=== PATIENT | female | born 1995 | race Caucasian/White ===

== ENCOUNTER 2017-02-28 17:34 | Inpatient (IN) | payer OTHER ==
[2017-02-28 18:20] LABS: Urine Appearance Cloudy; Urine Bilirubin Negative (NEGATIVE); Urine Color Yellow
[2017-02-28 18:31] LABS: Urine Blood Negative /ul (NEGATIVE); Urine Ketone Large mg/dL (NEGATIVE); Urine Nitrite Positive (NEGATIVE); Urine Protein 30 mg/dL (NEGATIVE); Urine Specific Gravity 1.025 SP.GR. (1.005-1.010); Urine Urobilinogen Normal (NORMAL); Urine WBC >50 /hpf (0-5)
[2017-02-28 18:32] LABS: Urine Bacteria 4+; Urine RBC None Seen /hpf (0-5)
--- OUTSIDE RECORDS SUMMARY | 2017-02-28 18:35 | XMS REPORT | Continuity of Care Document ---
:1995 Author Organization [employer] [place] [address] Care Team Providers Name Role Phone Roger Lai Primary Care Provider [phone] Source Comments This disclosure is being made pursuant to the [employer] program and maynot contain all information available regarding this patient.[facility] Active Allergies and Adverse Reactions No Known Allergies Current Medications Be aware that medications may not be up to date as of this document. Alwaysverify current medications with the patient. Prescription Sig. Disp. Refills Start Date End Date Status docusate sodium 100 MG Take 100 mg by 30 capsule 0 12/18/2012 Active CAPS mouth 2 (two) times daily. ibuprofen Take 1 tablet by 30 tablet 0 12/18/2012 Active (ADVIL,MOTRIN) 400 MG mouth every 4 tablet (four) hours as needed. norgestimate-ethinyl Take 1 tablet by 28 tablet 2 12/18/2012 Active estradiol mouth daily. 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 Pulse 80 12/18/2012 7:40 AM NAIL [employer] BR[employer] MACHINE FEEDER Temperature 36.1 C (97 F) 12/18/2012 7:40 AM NAIL [employer]ISH BR[employer] MACHINE FEEDER Respiratory Rate 18 12/18/2012 7:40 AM NAIL POLISH BR[employer] MACHINE FEEDER Height 1.626 m (5' 4") 12/16/2012 2:30 AM NAIL POLISH BR[employer] MACHINE FEEDER Weight 66.225 kg (146 lb) 12/16/2012 2:30 AM NAIL POLISH BR[employer] MACHINE FEEDER Body Mass Index 25.05 12/16/2012 2:30 AM NAIL POLISH BRUSH MACHINE FEEDER Oxygen Saturation 97% 12/12/2012 7:09 PM NAIL POLISH BRUSH MACHINE FEEDER Plan of Care Health Maintenance Due Date Last Done Comments HPV Vaccine (9-26YO) (1 of 3 - Female/Unknown 3 Dose 2004 Series) Chlamydia Screening 2009 Tetanus/Pertussis (1 - Tdap) 2012 Pap Smear 2014 Retired-INFLUENZA VACCINE 06/26/2016 Results from Last 3 Months Not on file
[2017-02-28] MEDS ORDERED: ACETAMINOPHEN 500 MG TABLET PO ONE (18:46)
[2017-02-28 18:53] LABS: Hematocrit 30.8 % (37.0-47.0); Hemoglobin 10.5 gm/dL (12.5-16.0); Mean Cell Volume 87.5 fl (78-100); Mean Corpuscular Hemoglobin 29.8 pg (27-31); Mean Corpuscular Hgb Conc 34.1 g/dl (32-36); Mean Platelet Volume 9.2 fl (6.0-9.5); Neutrophil # 13.7 K/mm3 (1.3-6.0); Neutrophil % 81.5 % (42-75.0); Platelet Count 289 K/mm3 (150-450); Red Blood Count 3.52 M/mm3 (4.2-5.4); Red Cell Distribution Width 12.6 % (11.5-14.0); White Blood Count 16.8 K/mm3 (4.0-10.5)
[2017-02-28 18:56] LABS: Total Cells Counted 100
[2017-02-28 19:00] LABS: Anion Gap 13.9 mmol/L (6.8-13.8); BUN/Creatinine Ratio 6.9 (9.0-21.6); Blood Urea Nitrogen 4 mg/dL (3-23); Calcium * 8.6 mg/dL (7.9-10.9); Carbon Dioxide 23.6 mmol/L (24-32.6); Chloride 104 mmol/L (97-106); Glucose * 97 mg/dL (70-110); Potassium 3.5 mmol/L (3.4-4.6); Sodium 138 mmol/L (132-142)
--- NOTE | 2017-02-28 19:16 | ERNOTE ---
Medical Problem HPI - Narrative Date of Service: 02/28/17 - General Chief Complaint: General Assessment Time Seen by Provider: 02/28/17 17:55 Source: patient Exam Limitations: no limitations - Immun/Allergies/Home Medications Immunizations: IMMUNIZATION HX Immunizations Up to Date Yes History of Influenza Vaccine No Hx Pneumococcal Vaccination No - History of Present History Narrative: patient presents to the ED for left posterior back pain. She relates this started last night around 9pm. She localizes it to near her spine. It hurts to lay on the area and move from side to side, also minimally to breath. No SOB. She has felt feverish. Some "[place]" contractions but no active contractions. No vaginal bleeding or lfluid leakage. No CP. She thinks she may have a UTI as her urine is dark. Has not seen anyone else for this. She works at [employer] and [employer] but cannot recall a specific injury. Timing: constant Severity: moderate Modifying Factors - (Improves): Present: rest Modifying Factors - (Worsens): Present: movement, other - twisting, palpation. Review of Systems - Review of Systems Constitutional: Present: fever Respiratory: Absent: cough Cardiology: Absent: chest pain Gastrointestinal/Abdominal: Absent: vomiting Genitourinary: Present: See HPI Musculoskeletal: Present: back pain Skin: Absent: rash All Other Systems: All systems neg except as marked - Patient's Past Medical History Patient History - Medical: Anemia Patient History - Cardiac/Respiratory: No pertinent hx Patient History - Cancer: No Hx of Cancer Patient History - Surgical Procedures: No surgical history Patient History - Other: None LMP (females 10-50): - Social History Living Situations: home Abuse History: No History of abuse Psych History: No pertinent hx Smoking Status: Current some day smoker Have you smoked in the past 12 months: Yes Alcohol Use: none Drug Use: none - Immunizations Immunizations Up to Date: Yes Hx Pneumococcal Vaccination: No History of Influenza Vaccine: No Physical Exam - Physical Exam General Appearance: Present: alert, no apparent distress Eye Exam: Normal inspection: bilateral, PERRL: bilateral Ears, Nose, Throat: Present: normal ENT inspection Neck: Present: normal inspection Respiratory: Present: no respiratory distress, normal breath sounds, no accessory muscle use, lungs clear Cardiovascular/Chest: Present: regular rate, rhythm Gastrointestinal/Abdominal: Present: normal bowel sounds, nontender, soft, other - gravid Back Exam: Present: other - No clear CVA tenderness. Dher does have muscular tenderness left thoracic back that is quite tender and palpation of the muscluature here reproduces her pain. Extremity Exam: Present: normal inspection, other - no DVT findings Neurological Exam: Present: alert, normal mood/affect, no motor/sensory deficits Skin Exam: Absent: skin rash ED Progress - Results and Orders Patient's Lab Results:: I have reviewed the patient's lab results. - Vital Signs Patient's Vital Signs:: I have reviewed the patient's vital signs. Vital Signs: Vital Signs 02/28/17 02/28/17 02/28/17 17:44 18:08 18:40 Temperature 37.6 C H 37.8 C H Pulse Rate 116 H 102 H Respiratory 16 Rate Blood Pressure 99/57 O2 Sat by Pulse 100 Oximetry 02/28/17 18:49 Temperature 37.7 C H Pulse Rate 100 Respiratory 14 Rate Blood Pressure 90/50 O2 Sat by Pulse 97 Oximetry - Progress/Reassessment Chief Complaint: General Assessment Progress Note-Subjective: 02/28/17 19:13 I discussed the case with Dr Chappell who wishes to have the patient sent to OB for further eval and mgmt, IV and ABx abx will be started there. Nothing at this time to suggest active labor or pulmonary embolism. immediate transfer to OB. Departure - Departure Clinical Impression: Back pain, UTI (urinary tract infection), , Leukocytosis Disposition: [facility] Condition: Stable Referrals: Isamar Beasley MD [Primary Care Provider] -
[2017-02-28 19:35] LABS: Band 1 % (0-2.0); Lymphocyte 17 % (20-51); Monocyte 12 % (0-9); Neutrophil 70 % (42-75); Neutrophil # 11.8 K/mm3 (1.3-6.0)
[2017-02-28 19:39] LABS: Platelet Estimate Normal (NORMAL); RBC Morphology Normal (NORMAL)
--- OUTSIDE RECORDS SUMMARY | 2017-02-28 19:51 | XMS REPORT | Continuity of Care Document ---
:1995 Author Organization [employer] [place] [address] Care Team Providers Name Role Phone Roger Lai Primary Care Provider [phone] Source Comments This disclosure is being made pursuant to the [employer] program and maynot contain all information available regarding this patient.[employer] Active Allergies and Adverse Reactions No Known [...] Taken Blood Pressure 106/60 12/18/2012 7:40 AM HEAD SCREEN WORKER Pulse 80 12/18/2012 7:40 AM HEAD SCREEN WORKER Temperature 36.1 C (97 F) 12/18/2012 7:40 AM HEAD SCREEN WORKER Respiratory Rate 18 12/18/2012 7:40 AM HEAD SCREEN WORKER Height 1.626 m (5' 4") 12/16/2012 2:30 AM HEAD SCREEN WORKER Weight 66.225 kg (146 lb) 12/16/2012 2:30 AM HEAD SCREEN WORKER Body Mass Index 25.05 12/16/2012 2:30 AM HEAD SCREEN WORKER Oxygen Saturation 97% 12/12/2012 7:09 PM HEAD SCREEN WORKER Plan of Care Health Maintenance Due Date Last Done Comments HPV Vaccine (9-26YO) (1 of 3 - Female/Unknown 3 Dose 2004 Series) Chlamydia Screening 2009 Tetanus/Pertussis (1 - Tdap) 2012 Pap Smear 2014 Retired-INFLUENZA VACCINE 06/26/2016 Results from Last 3 Months Not on file
[2017-02-28] MEDS ORDERED: ceFAZolin SODIUM 1 GM in DEXTROSE 5 % IN WATER 100 ML IV SCH ×2 (20:00)
[2017-02-28] MEDS ORDERED: ceFAZolin SODIUM/DEXTROSE,ISO 2 GM/50 ML BAG IV SCH (20:00)
[2017-02-28] MEDS ORDERED: ACETAMINOPHEN 325 MG TABLET PO PRN (20:01)
[2017-02-28] MEDS: RINGERS SOLUTION,LACTATED 1,000 ML IV PRN (20:05)
--- NOTE | 2017-02-28 20:24 | HP ---
Chief Complaint - Chief Complaint Date of Service: 02/28/17 Time of Service: 20:10 Chief Complaint: left sided back pain and fever/chills History of Present Illness: patient reports onset last pm around 9:00. worse with certain movement and deep breath. some associated urinary frequency. no dysuria - Patient's Past Medical History Patient History - Medical: No pertinent hx, Anemia Patient History - Cardiac/Respiratory: No pertinent hx Patient History - Cancer: No Hx of Cancer Patient History - Surgical Procedures: No surgical history Patient History - Other: None LMP (females 10-50): LMP (Calendar): 07/21/16 - Social History Living Situations: significant other Abuse History: No History of abuse Psych History: No pertinent hx Does anyone smoke in the home?: Yes Smoking Status: Current some day smoker - 1-2 cigarettes daily Have you smoked in the past 12 months: Yes Alcohol Use: none Drug Use: none - Immunizations Immunizations Up to Date: Yes Hx Pneumococcal Vaccination: No History of Influenza Vaccine: Yes Review Of Systems (GEN) - Review of Systems Generalized/Overall Review: Present: Chills, Fever EENTM: Present: No Symptoms Reported Respiratory: Present: No Symptoms Reported Cardiac: Present: No Symptoms Reported Abdominal: Absent: Nausea, Vomiting Genitourinary: Present: Frequency Musculoskeletal: Present: Back Pain Neurological: Present: No Symptoms Reported Skin: Present: No Symptoms Reported Additional Comments: Denies contractions, vaginal bleeding, leaking fluid or decreased movement. Allergies/Adverse Reactions: Allergies Allergy/AdvReac Type Severity Reaction Status Date / Time No Known Allergies Allergy Verified 02/28/17 20:07 Home Medications: HOME MEDICATIONS Acetaminophen [Tylenol] 325 mg PO PRN PRN 02/28/17 [Last Taken 02/28/17] Vit#96/Ferrous Fum/FA [ S] 1 tab PO DAILY 02/28/17 [Last Taken 02/28/17 0900] Exam - Exam Vital Signs: Vital Signs - Last Taken Temp 37.9 C H 02/28/17 20:08 Pulse 107 H 02/28/17 20:08 Resp 16 02/28/17 20:08 BP 117/69 02/28/17 20:08 Pulse Ox 98 02/28/17 20:08 Constitutional: Present: Alert, Oriented x3, Cooperative ENT Exam: Present: other - poor dentition Neck: Present: non-tender Back Exam: Present: CVA tenderness (L) Respiratory: Present: lungs clear, normal breath sounds Cardiovascular/Chest: Present: regular rate, rhythm Abdomen: Present: soft, nontender /Rectal: Present: Other - cervix FTP/25%/-3 vertex Extremity: Present: normal inspection, no pedal edema Skin Exam: Present: normal color, warm/dry Appearance: Present: appropriate appearance Eye contact: Present: cooperative Diagnostic Studies: Laboratory Results WBC 16.8 K/mm3 (4.0-10.5) H 02/28/17 18:45 RBC 3.52 M/mm3 (4.2-5.4) L 02/28/17 18:45 Hgb 10.5 gm/dL (12.5-16.0) L 02/28/17 18:45 Hct 30.8 % (37.0-47.0) L 02/28/17 18:45 MCV 87.5 fl (78-100) 02/28/17 18:45 MCH 29.8 pg (27-31) 02/28/17 18:45 MCHC 34.1 g/dl (32-36) 02/28/17 18:45 RDW 12.6 % (11.5-14.0) 02/28/17 18:45 Plt Count 289 K/mm3 (150-450) 02/28/17 18:45 MPV 9.2 fl (6.0-9.5) 02/28/17 18:45 Immature Gran % (Auto) 0.50 % (0.001-0.429) H 02/28/17 18:45 Immature Gran # (Auto) 0.09 K/mm3 (0.000-0.0310) H 02/28/17 18:45 Neutrophils % 81.5 % (42-75.0) H 02/28/17 18:45 Neutrophils % (Manual) 70 % (42-75) 02/28/17 18:45 Band Neuts % (Manual) 1 % (0-2.0) 02/28/17 18:45 Lymphocytes % 7.7 % (20-51) L 02/28/17 18:45 Lymphocytes % (Manual) 17 % (20-51) L 02/28/17 18:45 Monocytes % 10.0 % (0.0-9) H 02/28/17 18:45 Monocytes % (Manual) 12 % (0-9) H 02/28/17 18:45 Eosinophils % 0.1 % (0.0-3.0) 02/28/17 18:45 Basophils % 0.2 % (0.0-1.0) 02/28/17 18:45 Nucleated RBC % 0.0 k/mm3 (0-1) 02/28/17 18:45 Neutrophils # 13.7 K/mm3 (1.3-6.0) H 02/28/17 18:45 Neutrophils # (Manual) 11.8 K/mm3 (1.3-6.0) H 02/28/17 18:45 Lymphocytes # 1.3 k/mm3 (1.5-3.5) L 02/28/17 18:45 Lymphocytes # (Manual) 2.9 k/mm3 (1.5-3.5) 02/28/17 18:45 Monocytes # 1.7 k/mm3 (0.0-1.0) H 02/28/17 18:45 Monocytes # (Manual) 2.0 k/mm3 (0.0-1.0) H 02/28/17 18:45 Eosinophils # 0.0 k/mm3 (0.0-0.7) 02/28/17 18:45 Absolute Basophils 0.0 k/mm3 (0.0-0.1) 02/28/17 18:45 Platelet Estimate Normal (NORMAL) 02/28/17 18:45 RBC Morphology Normal (NORMAL) 02/28/17 18:45 Sodium 138 mmol/L (132-142) 02/28/17 18:45 Plasma Sodium 138 mmol/L (130-142) 02/28/17 18:45 Potassium 3.5 mmol/L (3.4-4.6) 02/28/17 18:45 Chloride 104 mmol/L (97-106) 02/28/17 18:45 Carbon Dioxide 23.6 mmol/L (24-32.6) L 02/28/17 18:45 Anion Gap 13.9 mmol/L (6.8-13.8) H 02/28/17 18:45 BUN 4 mg/dL (3-23) 02/28/17 18:45 Creatinine 0.58 mg/dL (0.4-1.4) 02/28/17 18:45 Est GFR (Non-Af Amer) 137 mL/min (60-130) H 02/28/17 18:45 BUN/Creatinine Ratio 6.9 (9.0-21.6) L 02/28/17 18:45 Random Glucose 97 mg/dL (70-110) 02/28/17 18:45 Calcium 8.6 mg/dL (7.9-10.9) 02/28/17 18:45 Urine Color Yellow 02/28/17 18:06 Urine Appearance Cloudy 02/28/17 18:06 Urine pH 6.0 pH (5.0-7.0) 02/28/17 18:06 Ur Specific [place] 1.025 SP.GR. (1.005-1.010) 02/28/17 18:06 Urine Protein 30 mg/dL (NEGATIVE) H 02/28/17 18:06 Urine Glucose (UA) Negative mg/dL (NEGATIVE) 02/28/17 18:06 Urine Ketones Large mg/dL (NEGATIVE) 02/28/17 18:06 Urine Blood Negative /ul (NEGATIVE) 02/28/17 18:06 Urine Nitrate Positive (NEGATIVE) H 02/28/17 18:06 Urine Bilirubin Negative mg/dl (NEGATIVE) 02/28/17 18:06 Prot Sulfosalicylic Acd 2+ mg/dL (0) H 02/28/17 18:06 Urine Urobilinogen Normal EU/dl (NORMAL) 02/28/17 18:06 Ur Leukocyte Esterase 500 /ul (NEGATIVE) H 02/28/17 18:06 Urine RBC None seen /hpf (0-5) 02/28/17 18:06 Urine WBC >50 /hpf (0-5) H 02/28/17 18:06 Ur Epithelial Cells 10-25 /hpf (0-5) H 02/28/17 18:06 Urine Bacteria 4+ (NONE) H 02/28/17 18:06 Urine Culture Comments Culture to follow 02/28/17 18:06 Assessment/Plan - Narrative Narrative: Patient will be admitted for IV hydration and IV antibiotic therapy of ancef. to cover probable E, Coli pyelonephritis. Will follow temp. ,WBC count and clinical response. - Assessment/Plan (1) Pyelonephritis affecting in third trimester Problem: Acute
[2017-02-28 20:29] LABS: Cocaine Ur Negative (NEGATIVE); Urine Barbiturate Negative (NEGATIVE); Urine Benzodiazepines Negative (NEGATIVE); Urine Opiates Negative (NEGATIVE); Urine PCP Negative (NEGATIVE); Urine THC Negative (NEGATIVE)
[2017-02-28] MEDS ORDERED: ceFAZolin SODIUM/DEXTROSE,ISO 2 GM/50 ML BAG IV ONE (20:30)
[2017-03-01] MEDS: ceFAZolin SODIUM 1 GM in DEXTROSE 5 % IN WATER 100 ML IV SCH ×8 (01:48→19:51)
[2017-03-01] MEDS: RINGERS SOLUTION,LACTATED 1,000 ML IV PRN ×4 (01:50→22:53)
[2017-03-01 05:34] LABS: Hematocrit 28.3 % (37.0-47.0); Hemoglobin 9.6 gm/dL (12.5-16.0); Mean Cell Volume 87.9 fl (78-100); Mean Corpuscular Hemoglobin 29.8 pg (27-31); Mean Corpuscular Hgb Conc 33.9 g/dl (32-36); Mean Platelet Volume 9.8 fl (6.0-9.5); Platelet Count 269 K/mm3 (150-450); Red Blood Count 3.22 M/mm3 (4.2-5.4); Red Cell Distribution Width 12.7 % (11.5-14.0); White Blood Count 16.6 K/mm3 (4.0-10.5)
[2017-03-01 05:47] LABS: Total Cells Counted 100
[2017-03-01 06:21] LABS: Band 4 % (0-2.0); Lymphocyte 17 % (20-51); Monocyte 9 % (0-9); Neutrophil 70 % (42-75); Neutrophil # 11.6 K/mm3 (1.3-6.0)
[2017-03-01 06:22] LABS: Platelet Estimate Normal (NORMAL); RBC Morphology Normal (NORMAL)
[2017-03-01] MEDS: PRENATAL VIT#96/FERROUS FUM/FA 1 TAB TABLET PO SCH (08:41)
--- NOTE | 2017-03-01 09:09 | PN ---
Subjective - Date and Time Seen Date: 03/01/17 Time: 09:00 Subjective Narrative: Feels better. Left back still sore but less. No nausea or vomiting. Fetus active. Objective - Review of Systems Generalized/Overall Review: Denies: Chills Respiratory: Reports: No Symptoms Reported Cardiac: Reports: No Symptoms Reported Abdominal: Reports: No Symptoms Reported Genitourinary Symptoms: Reports: No Symptoms Reported Musculoskeletal Complaints: Reports: Back Pain Neurological: Reports: No Symptoms Reported Skin: Reports: No Symptoms Reported Endocrine: Reports: No Symptoms Reported - Vitals Vitals: Last Vital Signs Temp 37.2 C 03/01/17 05:23 Pulse 102 H 03/01/17 05:23 Resp 16 03/01/17 05:23 BP 102/54 03/01/17 05:23 Pulse Ox 98 03/01/17 05:23 Tmax 37.9 - Abnormal Lab Findings Abnormal Lab Findings: Abnormal Lab Results 03/01/17 Range/Units 04:45 WBC 16.6 H (4.0-10.5) K/mm3 RBC 3.22 L (4.2-5.4) M/mm3 Hgb 9.6 L (12.5-16.0) gm/dL Hct 28.3 L (37.0-47.0) % MPV 9.8 H (6.0-9.5) fl Band Neuts % (Manual) 4 H (0-2.0) % Lymphocytes % (Manual) 17 L (20-51) % Neutrophils # (Manual) 11.6 H (1.3-6.0) K/mm3 Monocytes # (Manual) 1.5 H (0.0-1.0) k/mm3 - Exam Exam Narrative: mild left CVA tenderness to percussion Constitutional: Present: Alert, Oriented x3, No distress Abdomen: Present: soft, nontender, nondistended Skin Exam: Present: normal color, warm/dry Appearance: Present: appropriate appearance Eye contact: Present: cooperative Assessment/Plan Plan Narrative: IUP 34 weeks with+gram neg bacilli urine culture, probable E.Coli. on IV antibiotics just finished 3rd dose, clinically improving. Anemia. Continue IV antibiotics and IV hydration. - Problems/Diagnosis (1) Pyelonephritis affecting in third trimester Problem: Acute
[2017-03-01] MEDS: ACETAMINOPHEN 160 MG/5 ML BTL PO PRN ×2 (14:46→20:56)
[2017-03-02] MEDS: ceFAZolin SODIUM 1 GM in DEXTROSE 5 % IN WATER 100 ML IV SCH ×6 (01:51→08:28)
[2017-03-02] MEDS: ACETAMINOPHEN 160 MG/5 ML BTL PO PRN ×2 (03:10→11:54)
[2017-03-02 06:06] LABS: Hematocrit 26.7 % (37.0-47.0); Hemoglobin 8.7 gm/dL (12.5-16.0); Mean Corpuscular Hgb Conc 32.6 g/dl (32-36); Mean Platelet Volume 9.8 fl (6.0-9.5); Platelet Count 241 K/mm3 (150-450); White Blood Count 11.9 K/mm3 (4.0-10.5)
[2017-03-02 06:12] LABS: Total Cells Counted 100
[2017-03-02 06:48] LABS: Eosinophil 1 % (0-3); Lymphocyte 10 % (20-51); Monocyte 13 % (0-9); Neutrophil 76 % (42-75); Platelet Estimate Normal (NORMAL); RBC Morphology Normal (NORMAL)
[2017-03-02] MEDS: PRENATAL VIT#96/FERROUS FUM/FA 1 TAB TABLET PO SCH (08:25)
[2017-03-02 15:59] VITALS: BP 85/53
--- NOTE | 2017-03-02 19:04 | PN ---
Subjective - Date and Time Seen Date: 03/02/17 Time: 18:57 Subjective Narrative: Patient feeling much better. Complains of mild upper back pain between shoulder blades. Objective - Review of Systems Generalized/Overall Review: Reports: No Symptoms Reported EENTM: Reports: No Symptoms Reported Respiratory: Reports: No Symptoms Reported Cardiac: Reports: No Symptoms Reported Abdominal: Reports: No Symptoms Reported Genitourinary Symptoms: Reports: No Symptoms Reported Musculoskeletal Complaints: Reports: Back Pain - mid scapula Neurological: Reports: No Symptoms Reported Skin: Reports: No Symptoms Reported Endocrine: Reports: No Symptoms Reported - Vitals Vitals: Last Vital Signs Temp 36.7 C 03/02/17 15:42 Pulse 92 03/02/17 15:42 Resp 18 03/02/17 15:42 BP 85/53 03/02/17 15:42 Pulse Ox 98 03/02/17 15:42 - Abnormal Lab Findings Abnormal Lab Findings: Abnormal Lab Results 03/02/17 Range/Units 05:25 WBC 11.9 H D (4.0-10.5) K/mm3 RBC 3.00 L (4.2-5.4) M/mm3 Hgb 8.7 L (12.5-16.0) gm/dL Hct 26.7 L (37.0-47.0) % MPV 9.8 H (6.0-9.5) fl Neutrophils % (Manual) 76 H (42-75) % Lymphocytes % (Manual) 10 L (20-51) % Monocytes % (Manual) 13 H (0-9) % Neutrophils # (Manual) 9.0 H (1.3-6.0) K/mm3 Lymphocytes # (Manual) 1.2 L (1.5-3.5) k/mm3 Monocytes # (Manual) 1.5 H (0.0-1.0) k/mm3 - Exam Constitutional: Present: Alert, Oriented x3, Cooperative Breasts: Present: Exam deferred Respiratory: Present: lungs clear, no respiratory distress Cardiovascular/Chest: Present: normal peripheral pulses, regular rate, rhythm, no edema /Rectal: Present: Exam deferred Extremity: Present: no pedal edema, no calf tenderness Skin Exam: Present: normal color, warm/dry, no cyanosis Neurologic: Present: normal mood/affect, oriented x 3 Appearance: Present: appropriate appearance, appropriate insight Eye contact: Present: cooperative, good eye contact, normal speech Thoughts: Present: normal thought pattern Assessment/Plan Plan Narrative: All clinical parameters improving. Will discharge to home on Keflex 500mg BID for 14 days. F/u with Dr. Beasley in 3-5 days. Call if s/s return or worsen. Increase PO hydration. - Problems/Diagnosis (1) Pyelonephritis affecting in third trimester Problem: Acute
--- NOTE | 2017-03-02 19:11 | DS ---
(1) Pyelonephritis affecting in third trimester Diagnosis(s): Keflex 500mg BID x 14 days then prophylactic antibiotics q HS till delivery. Repeat urine culture one week after antibiotics completed. Follow up with Dr. Beasley in 3-5 days. Call if s/s worsen or return. Problem: Acute (2) Tobacco use during in third trimester Diagnosis(s): Encouraged to quit smoking. Counseled on risks to fetus: including labor , abruption, stillbirth, increased risk of SIDS and fussy baby syndrome after delivery. Problem: Acute (3) Anemia Diagnosis(s): Continue iron supplementation. Problem: Acute Qualifiers: Anemia type: iron deficiency Iron deficiency anemia type: inadequate dietary iron intake Qualified Code(s): D50.8 - Other iron deficiency anemias Description of Stay: 21 yo at 34 wks admitted to [facility] from ER for left sided pyelonephritis. She responded well to 48 hours of IV Cefazolin. Antepartum testing throughout her hospital stay was reassuring. She was discharged to home on Keflex 500mg BID x 14 days. Procedures Performed: see notes below - NST, IV antibiotics Results and Findings: WBC 16.8 to 11.9 H/H 10.5/30.8 to 8.7/26.7 Neut 11.8 to 9.0 Lymph 17 to 10 Urine culture - >100K E. Coli, resistant to ampicillin containing abx. UDS neg Temp 38 to 36.7 Discharge Disposition: Home self care Disposition: Home self-care Condition: Good Discharge Activity: Activity as tolerated Discharge Diet: General/regular food Referrals: Isamar Beasley MD [Primary Care Provider] - Prescriptions (Any new or edited meds): Cephalexin Monohydrate [Keflex Suspension] 500 mg PO BID 14 Days Complete Home Medications List: Complete Home Medication List: Acetaminophen [Tylenol] 325 mg PO PRN PRN 02/28/17 Vit#96/Ferrous Fum/FA [ S] 1 tab PO DAILY 02/28/17 Cephalexin Monohydrate [Keflex Suspension] 500 mg PO BID 14 Days 03/02/17
== END 2017-03-02 19:40 | disposition home or self-care (01) | DRG 781 ==
LOC: ER 17:34 → INTOOBSV 19:43 → MS 19:43 → OBSVTOIN 19:45
PROVIDERS: ADMIT Obstetrics & Gynecology; ATTEND Obstetrics & Gynecology
DX: O23.03 Infections of kidney in pregnancy, third trimester (principal); B96.20 Unspecified Escherichia coli [E. coli] as the cause of diseases classified elsewhere; F17.210 Nicotine dependence, cigarettes, uncomplicated; Z3A.34 34 weeks gestation of pregnancy

== ENCOUNTER 2017-04-14 23:35 | Inpatient (IN) | payer OTHER ==
--- OUTSIDE RECORDS SUMMARY | 2017-04-14 23:39 | XMS REPORT | Continuity of Care Document ---
:1995 Author Organization [employer] [place] [address] Care Team Providers Name Role Phone Roger Lai Primary Care Provider [phone] Source Comments This disclosure is being made pursuant to the [employer] program and maynot contain all information available regarding this patient.[employer] Active Allergies and Adverse Reactions No Known [...] Taken Blood Pressure 106/60 12/18/2012 7:40 AM HOSE COUPLING JOINER Pulse 80 12/18/2012 7:40 AM HOSE COUPLING JOINER Temperature 36.1 C (97 F) 12/18/2012 7:40 AM HOSE COUPLING JOINER Respiratory Rate 18 12/18/2012 7:40 AM HOSE COUPLING JOINER Height 1.626 m (5' 4") 12/16/2012 2:30 AM HOSE COUPLING JOINER Weight 66.225 kg (146 lb) 12/16/2012 2:30 AM HOSE COUPLING JOINER Body Mass Index 25.05 12/16/2012 2:30 AM HOSE COUPLING JOINER Oxygen Saturation 97% 12/12/2012 7:09 PM HOSE COUPLING JOINER Plan of Care Health Maintenance Due Date Last Done Comments HPV Vaccine (9-26YO) (1 of 3 - Female 3 Dose Series) 2004 Chlamydia Screening 2009 Tetanus/Pertussis (1 - Tdap) 2012 Pap Smear 2014 Influenza Immunization (#1) 2016 Results from Last 3 Months Not on file
[2017-04-15 00:33] LABS: Hematocrit 30.4 % (37.0-47.0); Hemoglobin 10.1 gm/dL (12.5-16.0); Mean Cell Volume 83.3 fl (78-100); Mean Corpuscular Hemoglobin 27.7 pg (27-31); Mean Corpuscular Hgb Conc 33.2 g/dl (32-36); Mean Platelet Volume 10.2 fl (6.0-9.5); Neutrophil # 5.3 K/mm3 (1.3-6.0); Neutrophil % 57.1 % (42-75.0); Platelet Count 318 K/mm3 (150-450); Red Blood Count 3.65 M/mm3 (4.2-5.4); Red Cell Distribution Width 13.4 % (11.5-14.0); White Blood Count 9.4 K/mm3 (4.0-10.5)
[2017-04-15] MEDS ORDERED: OXYTOCIN/DEXTROSE 5%-WATER 30 UNITS/500 ML BAG IV ONE (00:37)
[2017-04-15] MEDS ORDERED: RINGERS SOLUTION,LACTATED 1,000 ML IV ONE ×4 (00:37→10:00)
[2017-04-15] MEDS ORDERED: LIDOCAINE HCL 50 ML VIAL PERI PRN (00:37)
--- NOTE | 2017-04-15 01:02 | PN ---
Subjective - Date and Time Seen Date: 04/15/17 Subjective Narrative: Labor note 21 yo, CF, at 40.4 weeks, came in for contractions and labor check. Upon placing on monitor, she was noted to have prolonged decelerations x 2 from 130s down to 60-70 for 2-3 min. These decelerations occurred at 23; 45 and 00:00 during a 7 min closed-together contractions less than a minute apart. She was repositioned to left lateral position and given O2 by mass. IV was started and a LR bolus was given. decelerations resolved. On exam, she was dilated to 3 cm, 80% effaced and -2. Presentation was cephalic by bedside u/s. The decelerations were thought to be due to tachysystole. Will watch for now. Objective - Vitals Vitals: Last Vital Signs Temp 36.7 C 03/02/17 15:42 Pulse Resp BP 85/53 03/02/17 15:42 Pulse Ox - Abnormal Lab Findings Abnormal Lab Findings: Abnormal Lab Results 04/15/17 Range/Units 00:25 RBC 3.65 L (4.2-5.4) M/mm3 Hgb 10.1 L (12.5-16.0) gm/dL Hct 30.4 L (37.0-47.0) % MPV 10.2 H (6.0-9.5) fl
[2017-04-15] MEDS ORDERED: TERBUTALINE SULFATE 1 MG/ML VIAL ONE (01:07)
[2017-04-15] MEDS ORDERED: TERBUTALINE SULFATE 1 MG/ML VIAL SC STA ×2 (01:24→03:41)
[2017-04-15] MEDS: RINGERS SOLUTION,LACTATED 1,000 ML IV PRN ×2 (01:25→06:19)
[2017-04-15] MEDS ORDERED: ONDANSETRON HCL/PF 2 MG/ML VIAL IV PRN ×2 (03:36→09:33)
[2017-04-15] MEDS ORDERED: BUPIVACAINE HCL/0.9 % NACL/PF 250 ML EP PRN (03:36)
[2017-04-15] MEDS ORDERED: NALOXONE HCL 1 MG/1 ML SYRG IV PRN (03:36)
[2017-04-15] MEDS ORDERED: fentaNYL CITRATE/PF 50 MCG/ML AMPUL IT SCH (03:45)
--- NOTE | 2017-04-15 04:24 | OR ---
Anesthesia Procedure Note - Anesthesia Procedure Note Narrative: Vital Signs - Last Taken Temp 36.9 C 04/15/17 03:53 Pulse 78 04/15/17 03:53 Resp 18 04/15/17 03:53 BP 108/65 04/15/17 03:53 Pulse Ox 100 04/15/17 03:53 04/15/17 04:23 ANESTHESIA PROCEDURE NOTE Date of Procedure: 04/15/2017 Time of procedure: 404. Performed by: Tomas Gómez CRNA Wrist Liner: None. Preprocedure diagnosis: Active labor. Post procedure diagnosis: Same. Procedure: Insertion of labor epidural. Indications: The patient is a 21 -year-old multigravida female in active labor requesting labor epidural for pain management. Findings: See below. Details of the procedure: The patient was placed in a sitting position. Back was prepped with DuraPrep. Patient was then draped in a sterile fashion. Lidocaine 1% was infiltrated to the skin and subcutaneous tissues at the level of the L3 4 interspace. The epidural space was identified using a 18-gauge Tuohy needle with [id number] technique. 20 mcg fentanyl was given intrathecally using a 27 ga. spinal needle. Epidural catheter was inserted without difficulty. Negative test dose was elicited using 5 mL of 1.5% preservative-free lidocaine plus epinephrine 1 200,000. The epidural catheter was then taped and secured in place. EBL: Minimal. Fluids: N/A. Specimen: N/A. Post procedure condition: The patient tolerated the procedure well. No complications were noted. Thank you for this consultation. Diez CRNA
[2017-04-15] MEDS ORDERED: RINGERS SOLUTION,LACTATED 350 ML IV ONE (07:50)
[2017-04-15] MEDS ORDERED: ceFAZolin SODIUM 2 GM in DEXTROSE 5 % IN WATER 50 ML IV PRN ×2 (08:00)
[2017-04-15] MEDS ORDERED: OXYTOCIN 20 UNITS in RINGERS SOLUTION,LACTATED 1,000 ML IV ONE (08:11)
[2017-04-15] MEDS ORDERED: PROMETHAZINE HCL 12.5 MG in DEXTROSE 5 % IN WATER 50 ML IV PRN ×2 (09:33)
[2017-04-15] MEDS ORDERED: SENNOSIDES 8.6 MG TABLET PO PRN (09:33)
[2017-04-15] MEDS ORDERED: SIMETHICONE 80 MG TAB.CHEW PO PRN (09:33)
[2017-04-15] MEDS ORDERED: diphenhydrAMINE HCL 25 MG CAPSULE PO PRN (09:33)
[2017-04-15] MEDS ORDERED: IBUPROFEN 800 MG TABLET PO PRN (09:33)
[2017-04-15] MEDS ORDERED: HYDROcodone/ACETAMINOPHEN 1 EACH TABLET PO PRN (09:33)
[2017-04-15] MEDS ORDERED: BISACODYL 10 MG SUPP.RECT RC PRN (09:33)
--- NOTE | 2017-04-15 09:37 | OR ---
Operative Report - Dictated Report Narrative: DATE OF PROCEDURE: 04/15/2017 PROCEDURE: 1. Primary low transverse section ANESTHESIA: Epidural. PREOPERATIVE DIAGNOSES: 1. Intrauterine at 40 4/7 weeks 2. intolerance to labor with recurrent prolonged decelerations POSTOPERATIVE DIAGNOSES: 1. Intrauterine at 40 4/7 weeks 2. intolerance to labor with recurrent prolonged decelerations SURGEON: Isamar Beasley M.D. ENERGY AUDIT ADVISOR: Sai Lucas FINDINGS: 1. Male in cephalic presentation. Light meconium fluid. Weight 3541 g, 9/9, Time of delivery: 0826 2. Normal uterus, and normal bilateral ovaries and tubes SPECIMENS: placenta DRAIN: Bang to gravity. URINE OUTPUT: 400 ml. BLOOD LOSS: 1000 ml. IV FLUIDS: 1500 ml COMPLICATIONS: None. Description of Operative Procedure: The patient consented prior to the operation and was taken to the operating room. Epidural anesthesia was redosed. The patient was then placed in the dorsal supine position with leftward tilt. Sequential compression device was placed on the lower extremities and a Bang catheter was already in place. Two grams of Ancef was given at time of epidural redosing. The abdomen was prepped with Chloraprep and draped in the usual sterile fashion. A time-out was conducted to confirm the correct patient for the correct procedure. Anesthesia was tested and was suboptimal. Anesthesia was supplemented with IV sedation. A Pfannenstiel incision was marked and then made with a scalpel. The incision was carried through the subcutaneous layer to the fascia. The fascia was nicked at the midline and extended bilaterally bluntly. The upper edge and the lower edge of the fascia incision was bluntly along the midline. The rectus muscles were in the midline. The peritoneum was entered bluntly with a finger. The peritoneal incision was extended superiorly and inferiorly with good visualization of the bladder. A bladder blade was inserted. The vesicouterine peritoneum was identified, grasped with a smooth pick-ups, and entered sharply with Matzenbaum scissors. The incision was then extended laterally, and a bladder flap was created. The bladder blade was repositioned. The lower uterine segment was incised in a transverse fashion with the scalpel , and the incision was extended laterally by stretching. The bladder blade was removed. The amniotic sac was ruptured with light yellow fluid, suggesting meconium stain. The baby was in cephalic presentation. The head was elevated through the incision. Fundal pressure was applied and the baby's head was too big to deliver through the incision, so a Kiwi vacuum was applied to the traction point and pull along with fundal pressure. The baby was delivered atraumatically. There was no pop off. Baby cried after . The cord was clamped and cut. The infant was handed off to the nurse/ped in attendance. Cord blood was obtained. The placenta was removed manually. The uterus was then exteriorized, and cleared off clots and membrane. The uterine incision was closed with 0 vicryl in a running lock fashion. A second imbricating layer was placed with 2-0 Vicryl. Good hemostasis was obtained. The posterior cul-de- sac was cleared off clots and fluid. The uterus was returned to the abdomen. The gutters were cleared of blood clots and fluid. The peritoneum was closed with 2-0 Vicryl. The rectus muscle was inspected for bleeders. The fascia was reapproximated with #0 Vicryl in running fashion. The subcutaneous layer was irrigated with saline. The skin was closed with 3-0 Monocryl suture in a subcuticular fashion. Benzoid and Steri strips were applied to incision. Telfa and ABD was placed over the incision with pressuring dressing. The patient tolerated the procedure well. Sponge, lap, needle and instrument counts were correct. The patient was taken to the recovery room in stable condition. Isamar Beasley MD History for MU Definition: * The number of deliveries resulting in a live the patient experienced prior to current hospitalization * The previous delivery of live twins or any live multiple gestation is considered one live event. *If primagravida or nulliparous is documented select zero for the number of previous live births. Live Events: 1
[2017-04-15] MEDS: IBUPROFEN 100 MG/5 ML BTL PO PRN ×2 (11:26→17:57)
[2017-04-15 11:39] LABS: Mean Cell Volume 83.3 fl (78-100); Mean Corpuscular Hemoglobin 27.7 pg (27-31); Mean Corpuscular Hgb Conc 33.2 g/dl (32-36); Mean Platelet Volume 10.1 fl (6.0-9.5); Neutrophil # 14.6 K/mm3 (1.3-6.0); Neutrophil % 84.2 % (42-75.0); Platelet Count 259 K/mm3 (150-450); Red Blood Count 2.82 M/mm3 (4.2-5.4); Red Cell Distribution Width 13.6 % (11.5-14.0); White Blood Count 17.3 K/mm3 (4.0-10.5)
[2017-04-15 11:43] LABS: Hemoglobin 7.8 gm/dL (12.5-16.0)
[2017-04-15 11:44] LABS: Hematocrit 23.5 % (37.0-47.0)
[2017-04-15] MEDS: HYDROcodone/ACETAMINOPHEN 1 EACH TABLET PO PRN ×3 (14:52→20:55)
[2017-04-15] MEDS: DOCUSATE SODIUM 100 MG CAPSULE PO SCH (20:52)
[2017-04-15] MEDS: oxyCODONE HCL/ACETAMINOPHEN 1 TAB TABLET PO PRN (23:48)
[2017-04-15] MEDS ORDERED: KETOROLAC TROMETHAMINE 15 MG/ML VIAL IV ONE (23:55)
[2017-04-16] MEDS: oxyCODONE HCL/ACETAMINOPHEN 1 TAB TABLET PO PRN ×3 (03:54→16:03)
[2017-04-16] MEDS: IBUPROFEN 100 MG/5 ML BTL PO PRN ×3 (05:42→19:40)
[2017-04-16 06:04] LABS: Hematocrit 24.2 % (37.0-47.0); Mean Cell Volume 85.5 fl (78-100); Mean Corpuscular Hemoglobin 27.6 pg (27-31); Mean Corpuscular Hgb Conc 32.2 g/dl (32-36); Mean Platelet Volume 10.5 fl (6.0-9.5); Neutrophil # 8.1 K/mm3 (1.3-6.0); Neutrophil % 69.6 % (42-75.0); Platelet Count 294 K/mm3 (150-450); Red Blood Count 2.83 M/mm3 (4.2-5.4); Red Cell Distribution Width 13.9 % (11.5-14.0); White Blood Count 11.6 K/mm3 (4.0-10.5)
[2017-04-16 06:20] LABS: Hemoglobin 7.8 gm/dL (12.5-16.0)
[2017-04-16] MEDS: ASCORBIC ACID 500 MG TABLET PO SCH ×2 (08:31→20:04)
[2017-04-16] MEDS: DOCUSATE SODIUM 100 MG CAPSULE PO SCH ×2 (08:31→20:04)
[2017-04-16] MEDS: FERROUS SULFATE 325 MG TABLET PO SCH ×2 (08:31→16:06)
[2017-04-16] MEDS ORDERED: oxyCODONE HCL/ACETAMINOPHEN 1 TAB TABLET PO PRN (11:21)
--- NOTE | 2017-04-16 11:44 | PN ---
Subjective - Date and Time Seen Date: 04/16/17 Subjective Narrative: POD#1, s/p primary c/s for intolerance to labor. pain was not well controlled last night and received toradol x 1 and switched to percocet from [place]. pain is better controlled today. ambulating, tolerating diet. lochia small. bottle feeding. recheck CBC with hgb at 7.8, stable. no dizziness when ambulating. Objective - Vitals Vitals: Last Vital Signs Temp 37.1 C 04/16/17 06:39 Pulse 67 04/16/17 06:39 Resp 18 04/16/17 06:39 BP 122/81 04/16/17 06:39 Pulse Ox 98 04/16/17 06:39 - Abnormal Lab Findings Abnormal Lab Findings: Abnormal Lab Results 04/15/17 04/16/17 Range/Units 11:27 05:45 WBC 17.3 H D 11.6 H D (4.0-10.5) K/mm3 RBC 2.82 L 2.83 L (4.2-5.4) M/mm3 Hgb 7.8 L* D 7.8 L* (12.5-16.0) gm/dL Hct 23.5 L* D 24.2 L (37.0-47.0) % MPV 10.1 H 10.5 H (6.0-9.5) fl Immature Gran % (Auto) 0.60 H (0.001-0.429) % Immature Gran # (Auto) 0.10 H 0.04 H (0.000-0.0310) K/mm3 Neutrophils % 84.2 H (42-75.0) % Lymphocytes % 9.1 L (20-51) % Neutrophils # 14.6 H 8.1 H (1.3-6.0) K/mm3 - Exam Constitutional: Present: Oriented x3, Cooperative Respiratory: Present: no respiratory distress Cardiovascular/Chest: Present: normal peripheral pulses Abdomen: Present: soft, nondistended, other - fundus firm at umbillicus. Incision intact, dry and clean Extremity: Present: normal range of motion, no calf tenderness, pedal edema Skin Exam: Present: warm/dry, pallor Eye contact: Present: cooperative, good eye contact, normal speech Cauti Physician Documentation - Urinary Catheter Management Urethral (Bang) Date of Insertion: 04/15/17 Time of Insertion: 03:31 Date of Removal: 04/15/17 Time of Removal: 20:35 Assessment/Plan Plan Narrative: A: POD#1, s/p primary c/s with anemia hgb 7.8, stable, asymptomatic. Plan: routine post op care. iron with vit C bid for anemia. percocet for pain prn. ambulation encouraged. Isamar Beasley MD
[2017-04-17] MEDS: IBUPROFEN 100 MG/5 ML BTL PO PRN ×3 (03:47→18:18)
[2017-04-17] MEDS: ASCORBIC ACID 500 MG TABLET PO SCH ×2 (09:42→21:36)
[2017-04-17] MEDS: FERROUS SULFATE 325 MG TABLET PO SCH ×2 (09:42→17:52)
[2017-04-17] MEDS: DOCUSATE SODIUM 100 MG CAPSULE PO SCH ×2 (09:42→21:36)
--- NOTE | 2017-04-17 11:59 | PN ---
Subjective - Date and Time Seen Date: 04/17/17 Subjective Narrative: POD#2, s/p primary c/s, with anemia, hgb 7.8 stable. doing well. pain is better controlled today. no dizziness or palpitations with activity. normal lochia. Objective - Vitals Vitals: Last Vital Signs Temp 37.0 C 04/17/17 07:30 Pulse 87 04/17/17 07:30 Resp 20 04/17/17 07:30 BP 99/56 04/17/17 07:30 Pulse Ox 99 04/17/17 07:30 - Exam Constitutional: Present: Alert, Oriented x3, Cooperative Respiratory: Present: no respiratory distress Cardiovascular/Chest: Present: normal peripheral pulses Abdomen: Present: soft, nondistended, other - fundus firm below umbilicus. Incision dry and clean. Extremity: Present: normal range of motion, no pedal edema, no calf tenderness Skin Exam: Present: warm/dry, pallor Eye contact: Present: cooperative, good eye contact, normal speech Cauti Physician Documentation - Urinary Catheter Management Urethral (Bang) Date of Insertion: 04/15/17 Time of Insertion: 03:31 Date of Removal: 04/15/17 Time of Removal: 20:35 Assessment/Plan Plan Narrative: A: POD#2, s/p primary c/s with anemia, stable and well Plan: routine post op care. iron/vit c for anemia. ambulation encouraged. Isamar Beasley MD
[2017-04-18] MEDS: IBUPROFEN 100 MG/5 ML BTL PO PRN (05:29)
[2017-04-18 08:21] VITALS: BP 102/50
[2017-04-18] MEDS: DOCUSATE SODIUM 100 MG CAPSULE PO SCH (10:16)
[2017-04-18] MEDS: ASCORBIC ACID 500 MG TABLET PO SCH (10:16)
[2017-04-18] MEDS: FERROUS SULFATE 325 MG TABLET PO SCH (10:16)
--- NOTE | 2017-04-18 10:58 | PN ---
Subjective - Date and Time Seen Date: 04/18/17 Subjective Narrative: POD#3, s/p primar c/s with anemia doing well. no complaints. no dizziness with activity. ambulating well. pain controlled. lochia small. Objective - Vitals Vitals: Last Vital Signs Temp 36.9 C 04/18/17 07:55 Pulse 80 04/18/17 07:55 Resp 18 04/18/17 07:55 BP 102/50 04/18/17 07:55 Pulse Ox 100 04/18/17 07:55 - Exam Constitutional: Present: Alert, Oriented x3, Cooperative Respiratory: Present: no respiratory distress Cardiovascular/Chest: Present: normal peripheral pulses Abdomen: Present: soft, nondistended, other - fundus firm and below umbilicus. Incision dry and clean with steri strip intact. Extremity: Present: normal range of motion, no pedal edema, no calf tenderness Skin Exam: Present: warm/dry, pallor Eye contact: Present: cooperative, good eye contact, normal speech Cauti Physician Documentation - Urinary Catheter Management Urethral (Bang) Date of Insertion: 04/15/17 Time of Insertion: 03:31 Date of Removal: 04/15/17 Time of Removal: 20:35 Assessment/Plan Plan Narrative: A: POD#3, s/p primary c/s with anemia, stable and well. Plan: will discharge home. Isamar Beasley MD
== END 2017-04-18 13:30 | disposition home or self-care (01) | DRG 766 ==
LOC: OB 23:35
PROVIDERS: ADMIT Obstetrics & Gynecology; ATTEND Obstetrics & Gynecology
PROC: 4A1HXCZ Monitoring of Products of Conception, Cardiac Rate, External Approach (ICD-10-PCS; 2017-04-15)
PROC: 10D00Z1 Extraction of Products of Conception, Low, Open Approach (ICD-10-PCS; principal; 2017-04-15 08:00)
DX: O76 Abnormality in fetal heart rate and rhythm complicating labor and delivery (principal); O77.0 Labor and delivery complicated by meconium in amniotic fluid; O48.0 Post-term pregnancy; O90.81 Anemia of the puerperium; D64.9 Anemia, unspecified; Z3A.41 41 weeks gestation of pregnancy; Z37.0 Single live birth